=== PATIENT | male | born 1950 | race Caucasian/White ===

== ENCOUNTER 2017-05-28 07:23 | Day surgery (SDC) | END 2017-05-28 15:25 | disposition home or self-care (01) ==

== ENCOUNTER 2018-08-17 07:25 | Day surgery (SDC) | payer MEDICARE, BC ==
[~2018-08-17] VITALS: Ht 157.5 cm; Wt 104.8 kg
[2018-08-17] VITALS (17 sets, daily range): BP systolic 97–146; BP diastolic 52–74; PULSE 52–62; RESP 11–23; Ht 157.5 cm; Wt 104.8 kg
[~2018-08-17 07:25] MED LIST: ASPI-535 PO; DIAZEPAM 5 MG TAB PO SCH; DIPHENHYDRAMINE 50 MG CAP PO SCH; FAMOTIDINE 20 MG TAB PO SCH; FINA5TAB4 PO; METO-319 PO; SIMV20TA PO; SOD CHLORIDE 0.45% 1,000 ML IV SCH
[2018-08-17] MEDS ORDERED: SIMV20TA PO (08:35)
[2018-08-17] MEDS ORDERED: ASPI81TA52 PO (08:35)
[2018-08-17] MEDS ORDERED: FINA5TAB4 PO (08:36)
[2018-08-17] MEDS ORDERED: METO-319 PO (08:36)
[2018-08-17] MEDS ORDERED: PANT40TA3 PO (08:36)
[2018-08-17] MEDS ORDERED: NITR0.4T39 SL (08:37)
[2018-08-17] MEDS ORDERED: ISOS30TA67 PO (08:37)
[2018-08-17] MEDS ORDERED: POTA10TA37 PO (08:38)
[2018-08-17] MEDS ORDERED: METF500T24 PO (08:38)
[2018-08-17] MEDS ORDERED: LIDOCAINE 1% (MDV) 20 ML INJ ONE ×2 (09:19→09:53)
[2018-08-17] MEDS ORDERED: VERAPAMIL 5 MG INJ ONE (09:53)
[2018-08-17] MEDS ORDERED: FENTAnyl 50 MCG/ML VIAL ONE (09:53)
[2018-08-17] MEDS ORDERED: IODIXANOL LOCM 100 ML BTL ONE (09:53)
[2018-08-17] MEDS ORDERED: MIDAZOLAM 1 MG/ML 2 ML INJ ONE (09:53)
[2018-08-17] MEDS ORDERED: HEPARIN 1000 UNITS/ML 10 ML INJ ONE (09:53)
[2018-08-17] MEDS ORDERED: NITROGLYCERIN (IC) 100 MCG/ML INJ ONE (09:54)
[2018-08-17] MEDS ORDERED: SOD CHLORIDE 0.9% 500 ML ONE (09:54)
--- NOTE | 2018-08-17 10:51 | SIPON ---
Date/Time of Note Date/Time of Note DATE: 08/17/18 TIME: 10:50 Operative Report Preoperative Diagnosis 1.Chest pain 2.abnl mpi Postoperative Diagnosis 1.moderate nonobstructive cad Operation/Procedure Performed 1,[facility] Surgeon see signature line medical billing assistant 1.Jacob Anesthesia: moderate sedation Estimated blood loss: minimal Transfusion Required none Specimen none Grafts/Implants none Complications none MARIEL CHRISTIANSON Aug 17, 2018 10:51
[2018-08-17] MEDS ORDERED: SOD CHLORIDE 0.9% 1,000 ML IV SCH (10:56)
[2018-08-17] MEDS ORDERED: ONDANSETRON 4 MG INJ IV PRN (11:00)
[2018-08-17] MEDS ORDERED: ACETAMINOPHEN 325 MG TAB PO PRN (11:00)
[2018-08-17] MEDS ORDERED: AL HYDROX/MG HYDROX/SIMETH 30 ML CUP PO PRN (11:00)
--- NOTE | 2018-08-17 16:35 | RADRPT ---
Vent Rate: 59 bpm RR Interval: 1024 msec [place] Interval: 203 msec QRS Duration: 107 msec QT Interval: 466 msec QTC Interval: 461 msec P-R-T [place]: 30 - -35 - 87 degrees Sinus rhythm...normal P axis, V-rate 50- 99 Left axis deviation...QRS axis (-30,-90) Electronically Signed By: Dean Hogue
--- NOTE | 2018-08-17 18:39 | CARRPT ---
DATE OF PROCEDURE: 08/17/2018 TYPE OF PROCEDURES: 1. Left heart catheterization. 2. Coronary angiography. 3. Left ventriculogram. 4. Aortography. 5. Moderate conscious sedation. ATTENDING PHYSICIAN: Mariel Hogue MD REFERRING PHYSICIAN: Dr. Flannery. INDICATION: Chest pain refractory to medical therapy, positive stress test findings. TYPE OF ANESTHESIA: Conscious and local. BRIEF HISTORY: Mr. Jaffe is a 68-year-old male with history of hypertension, dyslipidemia and n onobstructive coronary artery disease by catheterization in 2018 who presented with complaints of sub sternal chest pain. He was placed on ascending medical therapy for chest pain and underwent a cardia c stress test showing positive ischemia. He was brought back to the cardiac [facility] laborer in order to ass ess the possibility of significant obstructive coronary artery disease leading to symptoms of chest p ain and subsequent positive stress test findings. DESCRIPTION OF PROCEDURE: After informed consent was obtained, the patient was brought to the [facility] cardiac catheterization lab where his right radial area was prepped and draped in sterile fashion. A 2% lidocaine was infiltrated to the right radial area in order to achieve neema quate anesthesia. Using the modified Seldinger technique, the radial artery was cannulated. Subsequ ently, a 6-Albanian arterial sheath was placed and a 5-Albanian JL3.5 catheter was used to cannulate the left main coronary ostium. With contrast injection, multiple views of the left coronary arterial sys tem were obtained. A JL3.5 mm guidewire and a JR4 was used to cannulate the right coronary arterial ostium. With contrast injection, multiple views of the right coronary arterial system were obtained. The JR4 was used to cannulate the right coronary arterial ostium. This proved unsuccessful due to a very vertical downgoing ostium. Subsequently, it was more selectively engaged with a multipurpose catheter and with contrast injection, multiple views of this vessel were obtained. The multipurpose c atheter was removed and a 6-Albanian pigtail was passed down the ascending aorta placed in LV. LVEDP w as measured and 20 mL of contrast were injected by power injector and pulled back across the aortic v alve, placed in the aortic root and again injection was made for aortography. The pigtail catheter w as removed. This completed the procedure. The patient's sheath was removed. TR Band was applied. There were no noted complications. FINDINGS: Coronary angiography: Left main 5 mm, no significant focal stenosis. Circumflex proximal ly is a 3.5 mm vessel, has a very ____ 10% to 20%, no significant focal stenosis. It is a codominant vessel and, therefore, gives off a small left-sided PDA, 2 mm, no significant focal stenosis. There is a distal branching obtuse marginal, 3 mm, no significant stenosis and mid branching obtuse margin al, 2 mm vessel with 20% mid body stenosis. There exists a very large ramus branch, 3.5 mm, with an ostial 20% stenosis proximally and 3 daughter branches, each with no significant focal stenosis. The LAD proximally is a 3 mm vessel, has ostial 20% stenosis. In the mid portion of the LAD, there is a n approximately 30% to 40% stenosis. The remainder of the LAD is free from significant focal stenose s and just around the apex, mid branching diagonal, 2.5 mm, with a 20% to 30% stenosis in its mid por tion, and a possible area of myocardial bridging in the mid portion of the LAD. The right coronary a rtery once again has very vertical takeoff, likely posterior superior, is a 2.5 mm vessel, has ____ o f 10% to 20%, no significant focal stenosis. This is a codominant vessel, gives off a small PDA, 2 m m, no significant focal stenoses. Left ventriculogram: The left ventricular ejection fraction is 60% to 65%, no significant aortic alisha nosis by gradient and 1+ mitral regurgitation. Aortography revealed the patient's [place] left and right coronary arteries with a right coronary rosa ry stents in attempt to pass by the right coronary artery more providing no significant additional bi furcation of the patient's right coronary artery. It is a widely patent vessel, small caliber overal l. TOTAL FLUOROSCOPY TIME: 7.8 minutes. TOTAL CONTRAST: 150 mL. IMPRESSION: 1. Moderate nonobstructive coronary artery disease with possible area of myocardial bridging in the mid portion of the patient's LAD. 2. Low normal left heart filling pressures. 3. No significant aortic stenosis by gradient. 4. 1+ mitral regurgitation. RECOMMENDATIONS: In light of procedure findings at this time, we would: 1. Maximize medical management and encourage patient to have medical compliance. 2. Aggressive risk factor reduction. 3. The patient will be readmitted to same day surgery center for post-cath observation and continue management of his pain symptoms with probable discharge later this afternoon. Dictated By: MARIEL TREVIZO/EMA Conf#: [id number] DID#: [id number] CC: DEVI FLANNERY M.D.;*EndCC*
== END 2018-08-17 14:59 | disposition home or self-care (01) ==
LOC: SDS 07:25
PROVIDERS: ATTEND Internal Medicine
DX: I25.10 Atherosclerotic heart disease of native coronary artery without angina pectoris (principal); I10 Essential (primary) hypertension; E78.5 Hyperlipidemia, unspecified
CPT/HCPCS: 71045; 80048; 80061; 82962; 85025; 85610; 85730; 93005; 93458; C1887; J1644; J2250; J3010; J7040; Q9967